=== PATIENT | female | born 1960 | race Caucasian/White ===

== ENCOUNTER 2017-07-04 13:17 | Emergency (ER) | payer MEDICAID ==
[2017-07-04 13:24] VITALS: BP 104/73; PULSE 82; RESP 16; TEMP 97.7; O2SAT 95
[2017-07-04] MEDS ORDERED: CARBAMIDE PEROXIDE 15 ML OTIC.BTL LEFTEAR ONE (14:18)
--- NOTE | 2017-07-04 14:20 | EDPHY ---
General Time Seen by Provider: 07/04/17 14:04 Narrative: CHIEF COMPLAINT: Bug in left ear HISTORY OF PRESENT ILLNESS: Patient presents with complaints of a bug in her left ear. She feels as though it has been present for 6 weeks as she has had pain that long. She hears it "chirping and talking to me." Moderately painful. She has attempted to irrigated with water, peroxide, and even baking soda last night. The sound comes and goes. The pain is constant. Worse with movement. No nausea or vomiting. No headache. No fever chills. No sore throat. No other associated complaints or modifying factors. REVIEW OF SYSTEMS: Ten systems reviewed and are negative unless otherwise noted in the HPI SOCIAL HISTORY: Smoker FAMILY HISTORY: Noncontributory EXAMINATION General Appearance: Alert, no distress Head: normocephalic, atraumatic Eyes: Pupils equal and round, no conjunctival pallor or injection ENT, Mouth: Mucous membranes moist. Airway is patent. The right EAC is clear. The left EAC is edematous with debris. No bleeding. Unable to visualize TM on 1st examination. Neck: Normal inspection, supple, non-tender Respiratory: No retractions or distress. Cardiovascular: Regular rate. Skin: Warm and dry, no rash. No erythema of the left mastoid. Skin is grossly intact DIFFERENTIAL DIAGNOSES: Including but not limited to EAC foreign body, otitis externa, otitis media, perforated TM MDM: 2:20 p.m. Left ear pain with sensation of foreign body. On examination I appreciate moderate edema and debris, not yet able to visualize the TM. I have ordered Debrox and gentle irrigation I will re-examine. No blood. No mastoiditis on exam. 2:45 p.m. I attempted to re-evaluated the patient. She is not in her room. 2:58 p.m. Notified by RN that the patient left without treatment completed. She informed me that she went in to irrigate the ear on the patient and the patient was gone. That was approximately 20 minutes ago. Unable to locate the patient at this time. She at this point is left without treatment completed. Unable to complete her care as she chose to leave. Charge nurse has been notified as well. - History Smoking Status: Current every day smoker - Objective Vital Signs: Initial Vital Signs Temperature (C) 97.7 F 07/04/17 13:21 Heart Rate 82 07/04/17 13:21 Respiratory Rate 16 07/04/17 13:21 Blood Pressure 104/73 07/04/17 13:21 O2 Sat (%) 95 07/04/17 13:21 O2 Delivery Mode Room Air Allergies/Adverse Reactions: Penicillins Allergy (Verified 07/04/17 13:20) Home Medications: Medication Instructions Recorded NK [No Known Home Meds] 07/04/17 Departure - Departure Disposition: Against Medical Advice Clinical Impression: Otalgia of left ear Otitis media Qualifiers: Otitis media type: unspecified Laterality: left Qualified Code(s): H66.92 - Otitis media, unspecified, left ear Condition: Good Instructions: Otitis Externa (ED) Referrals: Kanchan Perez MD [Medical Doctor] - As per Instructions
== END 2017-07-04 15:42 | disposition left against medical advice (07) ==
DX: H66.92 Otitis media, unspecified, left ear (principal); F17.200 Nicotine dependence, unspecified, uncomplicated

== ENCOUNTER 2017-07-09 02:01 | Emergency (ER) | payer MEDICAID ==
[2017-07-09 02:08] VITALS: TEMP 97.9
--- NOTE | 2017-07-09 02:47 | EDPHY ---
H & P Stated Complaint: L ear bug Time Seen by Provider: 07/09/17 02:18 HPI/ROS: HPI The patient presents with concern for a bug in her left ear. She is had symptoms of foreign body in her ear for several months often on though worse over the last 1 month. She says she feels a bug is stuck in her ear and even heard the bug laying eggs today. She has tried to irrigated out in the shower, using hydrogen peroxide and water on several occasions without any improvement. She says that she removed some whitish objects from her ear which she thinks were the eggs at the bug laid. She does not have any ear pain, decreased hearing. She was seen in the emergency department for this about a week ago but eloped. REVIEW OF SYSTEMS Constitutional: No fever, no chills. Eyes: No discharge. ENT: No sore throat. Cardiovascular: No chest pain, no palpitations. Respiratory: No cough, no shortness of breath. Gastrointestinal: No abdominal pain, no vomiting. Genitourinary: No hematuria. Musculoskeletal: No back pain. Skin: No rashes. Neurological: No headache. PMHx: COPD, migraine headache Soc Hx: 1 pack per day smoker, lives in her van PHYSICAL General Appearance: Alert, no distress Eyes: Pupils equal and round no pallor or injection ENT, Mouth: Left ear canal is slightly erythematous, TM completely occluded by whitish substance, Mucous membranes moist Respiratory: There are no retractions, lungs are clear to auscultation Cardiovascular: Regular rate and rhythm Gastrointestinal: Abdomen is soft and non-tender, no masses, bowel sounds normal Neurological: A&O, moves all extremities Skin: Warm and dry, no rashes Musculoskeletal: Neck is supple non tender Extremities: symmetrical, full range of motion Psychiatric: Patient is oriented X 3, there is no agitation Source: Patient Exam Limitations: No limitations - Personal History Current Tetanus/Diphtheria Vaccine: Unsure Current Tetanus Diphtheria and Acellular Pertussis (TDAP): Unsure - Medical/Surgical History Hx Asthma: No Hx Chronic Respiratory Disease: No Hx Diabetes: No Hx Cardiac Disease: No Hx Renal Disease: No Hx Cirrhosis: No Hx Alcoholism: Yes Hx HIV/AIDS: No Hx Splenectomy or Spleen Trauma: No Other PMH: PMH- bronchitis, cervical CA, migraines, anxiety, depression, PTSD - Social History Smoking Status: Current every day smoker Constitutional: Initial Vital Signs Temperature (C) 36.6 C 07/09/17 02:05 Heart Rate 106 H 07/09/17 02:05 Respiratory Rate 16 07/09/17 02:05 Blood Pressure 121/97 H 07/09/17 02:05 O2 Sat (%) 93 07/09/17 02:05 O2 Delivery Mode Room Air Allergies/Adverse Reactions: Penicillins Allergy (Verified 07/04/17 13:20) Home Medications: Medication Instructions Recorded NK [No Known Home Meds] 07/04/17 Medical Decision Making Differential Diagnosis: 57-year-old female with concern for foreign body in left ear canal for the last 1 month. She feels a bug moving around in her ear and has her the bug making noise. She thinks she removed some eggs from her your today. On exam, her TM is completely occluded with a whitish substance. Her tool technician was able to irrigate the ear and removed a large amount of laxity substance, patient later admitted she has put chapstick in her ear. TM was evaluated and does look slightly erythematous but intact with no evidence of foreign body. 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 I will refer her to Ear Nose and Throat per her request for further evaluation. There is no sign of infection, thus I will not give her antibiotics. Departure - Departure Disposition: Home, Routine, Self-Care Clinical Impression: Ear pain, left Condition: Good Instructions: Earache (ED) Additional Instructions: Please call the Ear Nose and Throat doctor listed below at 8:30 a.m. this morning to arrange for follow-up. We did not see any signs of ear infection or bug in her ear from the emergency department. Referrals: Adal Alfaro MD [Medical Doctor] - As per Instructions
[2017-07-09 03:14] VITALS: BP 128/87; PULSE 79; RESP 20; O2SAT 96
== END 2017-07-09 03:14 | disposition home or self-care (01) ==
DX: H92.02 Otalgia, left ear (principal); F17.200 Nicotine dependence, unspecified, uncomplicated; J44.9 Chronic obstructive pulmonary disease, unspecified; Z85.41 Personal history of malignant neoplasm of cervix uteri; X58.XXXA Exposure to other specified factors, initial encounter; Y99.8 Other external cause status

== ENCOUNTER 2017-10-25 16:32 | Emergency (ER) | payer MEDICAID ==
[2017-10-25 16:41] VITALS: BP 141/110; PULSE 106; RESP 16; TEMP 98.1; O2SAT 93
--- NOTE | 2017-10-25 16:50 | EDPHY ---
HPI/HX/ROS/PE/MDM Narrative: CHIEF COMPLAINT: Burning sensation in ears radiating to chest HPI: The patient is a 57 y/o female complaining of a burning sensation in her ears radiating to chest for 4 weeks. She believes this pain is due to a parasite infection, show she has been placing a tincture of [place] and [place] in her ears for the past 4 weeks. She believes she saw parasites coming out of her ears. No shortness of breath, abdominal pain, urinary or bowel complaints, headache, rash, fever. On 07/04/17, 4 months ago, she was seen in the ED as she thought she had a bug in her ear. During this visit they found that the patient actually placed ChapStick in her ear. She was referred to an ENT, but did not go. Instead, she went to her PCP, who gave her ear drops. Prior medical records reviewed including ED visit with Dr. Tavares on 07/04/17. REVIEW OF SYSTEMS: Aside from elements discussed in the HPI, a comprehensive 10-point review of systems was reviewed and is negative. PMH: COPD, migraine headache SOCIAL HISTORY: Smoker, lives in [place] PHYSICAL EXAM: General: Patient is alert, in no acute distress. ENT: Eyes are normal to inspection. TM's are clear and intact bilaterally. Bilateral external ear canals are extremely scabbed/excoriated with tenderness on exam. I see no signs of parasites or FB. Neck: Normal inspection. Full range of motion. Respiratory: No respiratory distress. Breath sounds normal bilaterally. Cardiovascular: Regular rate and rhythm. Strong peripheral pulses. Normal cap refill. Abdomen: The abdomen is nontender to palpation. There are no peritoneal signs. There are normal bowel sounds. Back: Normal to inspection. No tenderness to palpation. Skin: Normal color. No rash. Warm and dry. Extremities: Normal appearance. Full range of motion. Neuro: Oriented x3. Normal motor function. Normal sensory function Psych: Denies HI/SI. ED Course: 1719: Spoke with radiologist, patient's head CT is normal. 1721: Reassessed patient and discussed imaging findings. I have prescribed her Ciprofloxacin drops and advised her to immediately stop placing all other substances or tinctures in her ears. I have also given her an ENT referral with Dr. Callejas. Return precautions provided; patient is comfortable with this plan. 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 She also states she can hear the worms talking to her and that there is a national epidemic of people with parasites in their heads that they do not know about. CTH shows no sign of FB or other process that might be causing AMS. Unfortunately, her concern over these parasites has led her to have some actual negative effects on both auditory canals as she continues to put a number of chemicals and other objects in her ears. This has led to a great deal of excoriation and tenderness, concerning for a chronic otitis externa. This appears to be a fixed delusion, as the patient does not seem otherwise greatly altered. She would benefit from psychiatric evaluation but is not appropriate for an M1 hold or emergent evaluation. I explained to the patient that I see no signs of parasites, and strongly cautioned her to avoid putting anything in her ears whatsoever other than the antiobiotic drops I have prescribed. I have prescribed a combo drop with a steroid medication to aid with inflammation. I have also strongly recommended she follow-up with ENT. I doubt the patient will follow my advice, but I'm not sure how we can help her further from the ED. - Data Points Imaging Results: Imaging Impressions Head CT 10/25/17 16:51 Impression: 1. No significant intracranial abnormality seen. If symptoms worsen, additional imaging may be necessary. Findings discussed with Adal Mata MD at 17:20 hour, 10/25/2017. Imaging: Discussed imaging studies w/ call center agent Radiologist, I viewed and interpreted images myself General Time Seen by Provider: 10/25/17 16:43 Initial Vital Signs: Initial Vital Signs Temperature (C) 36.7 C 10/25/17 16:38 Heart Rate 106 H 10/25/17 16:38 Respiratory Rate 16 10/25/17 16:38 Blood Pressure 141/110 H 10/25/17 16:38 O2 Sat (%) 93 10/25/17 16:38 O2 Delivery Mode Room Air Allergies/Adverse Reactions: Penicillins Allergy (Verified 10/25/17 16:37) Home Medications: Medication Instructions Recorded [place] Poll[place] 10/25/17 Ciprofloxacin HCl/Dexameth 4 drops OT BID 7 Days drops.susp 10/25/17 [Ciprodex Otic Suspension] [place] 10/25/17 Departure - Departure Disposition: Home, Routine, Self-Care Clinical Impression: Otitis externa, Delusions of parasitosis Condition: Good Instructions: Otitis Externa (ED) Additional Instructions: Use the Ciprofloxacin drops as prescribed. Stop placing all substances or tinctures in your ears besides the Ciprofloxacin drops prescribed in the Emergency Department. Follow up with an Ear, Nose, and Throat doctor within the next 3 days, you have been referred to Dr. Callejas. Return to the Emergency Department for fever, chest pain, shortness of breath, increasing pain or other worsening of condition. Referrals: [facility],. [Clinic] - As per Instructions Triston Callejas MD [Medical Doctor] - As per Instructions Prescriptions: Ciprofloxacin HCl/Dexameth [Ciprodex Otic Suspension] 4 drops OT BID 7 Days drops.susp Report Scribed for: Adal Mata Report Scribed by: Rachael Sierra Date of Report: 10/25/17 Time of Report: 16:47 Physician Review and Approval Statement: Portions of this note were transcribed by an ED scribe. I personally performed the history, physical exam, and medical decision making; and confirm the accuracy of the information in the transcribed note.
== END 2017-10-25 17:38 | disposition home or self-care (01) ==
DX: H60.93 Unspecified otitis externa, bilateral (principal); F22 Delusional disorders; J44.9 Chronic obstructive pulmonary disease, unspecified; F17.200 Nicotine dependence, unspecified, uncomplicated

== ENCOUNTER 2019-01-14 14:50 | Inpatient (IN) | payer MEDICAID, OTHER | END 2019-01-16 16:02 | disposition home or self-care (01) | LOC: F3N 19:50 ==